=== PATIENT | female | born 1975 | race Caucasian/White ===

== ENCOUNTER 2020-08-09 05:42 | Day surgery (SDC) | payer MEDICARE ==
[~2020-08-09] VITALS: Ht 182.9 cm; Wt 54.0 kg
--- NOTE | ~2020-08-09 | OP ---
PATIENT NAME: TARAH ARREOLA MEDICAL RECORD: [id number] :77 LOCATION:[facility] ADMISSION DATE: SURGEON: LORENE BOLIVAR MD DATE OF OPERATION: 08/09/2020 Referred by Wilma Jimenez MD PREOPERATIVE DIAGNOSES: End-stage renal disease and dependence on hemodialysis and systemic lupus erythematosus. POSTOPERATIVE DIAGNOSES: End-stage renal disease and dependence on hemodialysis and systemic lupus erythematosus. OPERATION PERFORMED: Creation of a left brachial artery to basilic vein Luisa type AV fistula with plan to revise fistula in a few weeks to a brachial artery to translocate basilic vein fistula. SURGEON: Lorene Bolivar MD ANESTHESIA: Regional nerve block plus general anesthesia per RODENT EXTERMINATOR. The patient's PCP is Dr. Garcia in [place]. PREOPERATIVE NOTE: Ms. Arreola is a 45-year-old female with end-stage renal disease as a complication of her lupus and she needs long-term dialysis access. She is extremely petite with small extremities, very thin arms. She has a flexure deformity of the left elbow and partly for that reason we plan to put the access in the left upper arm. DESCRIPTION OF PROCEDURE: Under anesthesia, the patient was prepped and draped in sterile manner. Care was taken not to overly rotate or try to straighten the contracted elbow. I examined her with the ultrasound after applying topical nitroglycerin and using a [place] drain as a proximal venous tourniquet. The basilic vein in the upper arm is very dominant. The cephalic vein is much smaller. I thought that it looked like she would be best a candidate for a brachiobasilic fistula. I made a transverse incision across the antecubital space and exposed the median cubital basilic vein and exposed the brachial artery. These vessels were dissected free of surrounding tissues. A few tributaries were divided between 3-0 Vicryl ties. The vessels were then controlled and occluded and approximated side to side with doubly looped Silastic tapes. Corresponding arteriotomy and venotomy approximately 8 mm in length was made and the vessels flushed proximally and distally with heparinized saline. The anastomosis was then sutured with running 7-0 Prolene, and when completed, the occluding loops were released, excellent flow developed in the new fistula. There was a low resistance flow in the proximal brachial artery and high resistant pulsatile flow in the distal brachial artery and there was preservation of excellent pulsatile flow in the ulnar and radial arteries at the wrist. Hemostasis was obtained with a very discrete use of electrocautery and the use of a very small amount of fibrillar hemostatic agent. The vein distal to the anastomosis was closed with a small Hemoclip leaving a 1 directional outflow tract proximally. The wound was then closed by approximating subcutaneous tissues with interrupted inverted 3-0 Vicryl and skin closure was done with a running 4-0 Stratafix and OPERATIVE REPORT [id number] TARAH ARREOLA Dermabond glue. The incision was dressed with Maxorb AG, Tegaderm, Cavilon skin prep and the patient awakened from her anesthetic and taken to the recovery room. Blood loss during the operation was minimal, 2 to 3 cc only. Sponges, instruments, and needles were accounted for. No specimen was sent for histopathology and no drain was used. PLAN: For the patient to go home today and follow up with me in my office next week. She will need to be returned to the OR in the next 2-4 weeks for the revision to a translocated brachiobasilic fistula. She is given a prescription today for 10 tablets of [place] 5/325. She can take 1 p.o. q.4 hours p.r.n. pain and she is to elevate her arm p.r.n. on pillows. She will wear a sling today and this evening or at least until the regional nerve block has worn off. She is to leave the initial operative dressing intact and keep it dry and clean if at all possible. I will remove the dressing when she sees me in the office. TRANSINT:[id number] Voice Confirmation ID: [id number] DOCUMENT ID: [id number] LORENE BOLIVAR MD CC: NGA GARCIA MD and WILMA JIMENEZ MD [id number] DICTATION DATE: 08/09/201127 VAN DRIVER HELPER: 08/09/202050 [facility] 08/09/20 [facility] [address] [place] [address]
[2020-08-09 06:18] LABS: ANION GAP 11.8 mmol/L (8-16); CALCIUM 7.8 mg/dL (8.5-10.1); CARBON DIOXIDE 28.8 mmol/L (21.0-32.0); CREATININE - SERUM 2.7 mg/dL (0.6-1.3); POTASSIUM - SERUM 3.6 mmol/L (3.5-5.1)
[2020-08-09 06:21] LABS: HEMATOCRIT 28.3 % (36.0-48.0); HEMOGLOBIN 8.5 g/dL (12-16); LYMPHOCYTE ABS# 0.36 10x3/uL (1.18-3.74); MCH 31.8 pg (26.0-34.0); MEAN PLATELET VOLUME 11.3 fL (7.4-10.4); PLATELET COUNT 177 10x3/uL (130-400); RBC 2.67 10x6/uL (4.00-5.40); RDW 18.4 % (11.5-14.5); WBC 2.6 10x3/uL (4.8-10.8)
[2020-08-09 06:31] LABS: INR 1.1 (0.85-1.17); PROTIME 13.1 SECONDS (11.6-15.0)
[2020-08-09] MEDS ORDERED: MOBIC7.5 MG (07:14)
[2020-08-09] MEDS ORDERED: NEPHRO-VITE RX1 TAB (07:14)
[2020-08-09] MEDS ORDERED: FUROSEMIDE40 MG (07:15)
[2020-08-09] MEDS ORDERED: HIBICLENS 4% (07:15)
[2020-08-09] MEDS ORDERED: AMINO ACIDS (07:15)
[2020-08-09] MEDS ORDERED: TUMS X-STR300 MG (07:16)
[2020-08-09 07:19] VITALS: Ht 182.9 cm; Wt 54.0 kg
[2020-08-09 07:33] LABS: HCG SERUM NEGATIVE (NEGATIVE)
[2020-08-09 13:24] LABS: LYMPHOCYTES 22 % (15-50); MONOCYTES 10 % (2-11); NEUTROPHILS 65 % (40-80); PLATELET ESTIMATE NORMAL
--- NOTE | 2020-08-09 15:03 | NUR ---
1323 REQUESTS DISCHARGE. STATES NAUSEA IS BETTER. IV DC'ED WITH CATH INTACT. PRESSURE TO SITE. NO BLEEDING NOTED. DRESSED BY STAFF. Isabel CONNELL R.N. [id number] PROVIDED WITH D/C INFORMATION INCLUDING: RX FOR NORCO 5MG, MED REC, NERVE BLOCK SHEET, & AV FISTULA D/C INSTRUCTIONS & [facility] D[facility]C INSTRUCTIONS. PT.'S SON VOICED UNDERSTANDING. PT LISTENED. TO PRIVATE CAR PER STAFF. HOME WITH SON, Isabel CONNELL R.N.
== END 2020-08-09 13:37 | disposition home or self-care (01) ==
LOC: D.OPS 05:42
PROVIDERS: Anesthesiology; Surgery; ATTEND Internal Medicine
DX: N18.6 End stage renal disease (principal); Z99.2 Dependence on renal dialysis; M32.9 Systemic lupus erythematosus, unspecified

== ENCOUNTER 2020-09-13 08:26 | Day surgery (SDC) | payer MEDICARE ==
[~2020-09-13] VITALS: Ht 182.9 cm; Wt 53.5 kg
[~2020-09-13 08:26] MED LIST: AMINO ACIDS; FUROSEMIDE40 MG PO; HIBICLENS 4%; MOBIC7.5 MG; NEPHRO-VITE RX1 TAB; TUMS X-STR300 MG PO
[2020-09-13 08:49] LABS: HEMATOCRIT 25.7 % (36.0-48.0); HEMOGLOBIN 8.3 g/dL (12-16); MCH 33.4 pg (26.0-34.0); MCHC 32.2 g/dL (31.0-37.0); MCV 103.6 fL (80.0-100.0); MEAN PLATELET VOLUME 7.9 fL (7.4-10.4); PLATELET COUNT 162 10x3/uL (130-400); RBC 2.48 10x6/uL (4.00-5.40); RDW 18.9 % (11.5-14.5); WBC 2.6 10x3/uL (4.8-10.8)
[2020-09-13 09:15] LABS: ALBUMIN 1.8 g/dL (3.4-5.0); ANION GAP 11.6 mmol/L (8-16); BILIRUBIN - TOTAL 0.32 mg/dL (0.2-1.3); CALCIUM 7.7 mg/dL (8.5-10.1); CARBON DIOXIDE 26.2 mmol/L (21.0-32.0); CREATININE - SERUM 3.3 mg/dL (0.6-1.3); POTASSIUM - SERUM 3.8 mmol/L (3.5-5.1); PROTEIN - SERUM 9.6 g/dL (6.4-8.2)
[2020-09-13 09:24] LABS: INR 1.09 (0.85-1.17); PROTIME 13.1 SECONDS (11.6-15.0)
[2020-09-13] MEDS ORDERED: RISPERDAL1 MG PO (09:41)
[2020-09-13 09:57] VITALS: Ht 182.9 cm; Wt 53.5 kg
[2020-09-13 11:01] LABS: LYMPHOCYTES 11 % (15-50); MONOCYTES 7 % (2-11); NEUTROPHILS 79 % (40-80); PLATELET ESTIMATE NORMAL
[2020-09-13 11:23] LABS: HCG URINE NEGATIVE (NEGATIVE)
--- NOTE | 2020-09-13 16:15 | NUR ---
1240 PT. DEMANDS TO BE RELEASED. SHE STATES SHE IS NOT WAITING ANY LONGER, BECAUSE SHE WAS "PROMISED" BY DR. BOLIVAR SHE WOULD BE HIS FIRST CASE AND SHE IS HIS 3RD CASE. PT ASKED TO STAY REQUESTED BY DR. BOLIVAR AND SHE WAS TOLD HE IS IN THE MIDDLE OF HIS FIRST SURGERY. PT. STILL INSISTANT ON BEING RELEASED. IV DC'D WITH CATH INTACT. AMA SIGNED, RELEASED IN WC WITH HER RIDE.
== END 2020-09-13 12:45 | disposition home or self-care (01) ==
LOC: D.OPS 08:26
PROVIDERS: ATTEND Surgery
DX: N18.6 End stage renal disease (principal); Z99.2 Dependence on renal dialysis; Z53.29 Procedure and treatment not carried out because of patient's decision for other reasons

== ENCOUNTER 2020-09-27 06:21 | Day surgery (SDC) | payer MEDICARE ==
[2020-09-13 09:57] VITALS: BMI 16.0
[~2020-09-27 06:21] MED LIST changes: +RISPERDAL1 MG PO
[2020-09-27 06:43] LABS: BASOPHILS 0.3 % (0-2); EOSINOPHILS 1.6 % (0-7); HEMATOCRIT 26.6 % (36.0-48.0); HEMOGLOBIN 8.5 g/dL (12-16); LYMPHOCYTES 13.2 % (15-50); MCH 33.7 pg (26.0-34.0); MCHC 31.9 g/dL (31.0-37.0); MCV 105.8 fL (80.0-100.0); MEAN PLATELET VOLUME 8.2 fL (7.4-10.4); MONOCYTES 4.4 % (2-11); NEUTROPHILS 80.5 % (40-80); PLATELET COUNT 154 10x3/uL (130-400); RBC 2.51 10x6/uL (4.00-5.40); RDW 19.5 % (11.5-14.5); WBC 2.7 10x3/uL (4.8-10.8)
[2020-09-27 06:55] LABS: ANION GAP 16.2 mmol/L (8-16); CALCIUM 7.4 mg/dL (8.5-10.1); CARBON DIOXIDE 21.4 mmol/L (21.0-32.0); CREATININE - SERUM 4.8 mg/dL (0.6-1.3); POTASSIUM - SERUM 5.6 mmol/L (3.5-5.1)
[2020-09-27 07:20] LABS: INR 1.15 (0.85-1.17); PROTIME 13.6 SECONDS (11.6-15.0)
--- NOTE | 2020-09-27 10:17 | NUR ---
924 DR. BOLIVAR HERE, SPEAKS WITH PATIENT AND WILL CANCELL TODAYS' SURGERY. 944 PT'S SON HERE NOW, SPEAKS TO PATIENT AND COMES TO DESK TO SAY HE IS "PISSED" AND STATES "I WANT TO SPEAK TO DR. BOLIVAR, NOW." DR. BOLIVAR IS OUT OF OUR UNIT, PT'S SON WAS TOLD THAT IF HE WANTED TO WAIT UNTIL DR. MCHUGH NEXT SURGERY WAS COMPLETED HE COULD COME AND SPEAK WITH THEM THEN. PT'S SON CHOOSE NOW TO WAIT. 949 PT. RELEASED IN WC TO CAR, SON BELLPERSON. WHEN SPEAKING WITH PT, SHE SAID SHE MISSED HER LAST DIALYSIS SESSION BECAUSE SHE IS "PEEING AT 70%" I ATTEMPTED TO EXPLAIN DIALYSIS DEPENDS ON HER LAB VALUES, NOT SOLELY ON URINATING. I ALSO, EXPLAINED HER LABS SHOWN AN INCREASE IN POTASSIUM OF 5.6 AND SHE SHOULD CERTAINLY WATCH WHAT SHE EATS. SHE SAID SHE DOES NOT EAT THINGS WITH POTASSIUM. I EXPLAINED THAT DIALYSIS WOULD LOWER HER POTASSIUM SOME TO A NORMAL LEVEL AND SHE SHOULD KEEP HER NEXT APPOINTMENT.
== END 2020-09-27 09:50 | disposition home or self-care (01) ==
LOC: D.OPS 06:21
PROVIDERS: ATTEND Surgery
DX: N18.6 End stage renal disease (principal); Z99.2 Dependence on renal dialysis; Z53.8 Procedure and treatment not carried out for other reasons